=== PATIENT | female | born 1995 ===

== ENCOUNTER 2017-07-13 19:44 | Emergency (ER) | payer SELFPAY ==
[2017-07-13 20:15] VITALS: BP 104/53; PULSE 67; RESP 17; TEMP 99.7; O2SAT 99
--- NOTE | 2017-07-13 20:47 | ED PDOC ---
HPI: Abdomen Time Seen by Provider: 07/13/17 20:20 Chief Complaint (Nursing): Abdominal Pain Chief Complaint (Provider): abdominal pain History Per: Patient History/Exam Limitations: no limitations Onset/Duration Of Symptoms: Days (2) Current Symptoms Are (Timing): Still Present Location Of Pain/Discomfort: RLQ, LLQ, Suprapubic Quality Of Discomfort: "Pain" Additional History Per: Patient Additional Complaint(s): 21 y/o female, approx 6 weeks gestation, presents with lower pelvic pain x 2 days. Associated low back pain, and one vomiting episode today. Denies fever, cough, congestion, chest pain, shortness of breath, changes in bowel movements, dysuria, hematuria, vaginal bleeding/discharge. Abnormal Vaginal Bleeding: No Last Menstral Period: 05/31/17 : 2 Para: 1 Miscarriage: 0 Past Medical History Reviewed: Historical Data, Nursing Documentation, Vital Signs Vital Signs: Last Vital Signs Temp 99.7 F H 07/13/17 20:10 Pulse 67 07/13/17 20:10 Resp 17 07/13/17 20:10 BP 104/53 L 07/13/17 20:10 Pulse Ox 99 07/13/17 22:34 - Medical History PMH: No Chronic Diseases - Surgical History Surgical History: No Surg Hx - Family History Family History: States: No Known Family Hx - Allergies Allergies/Adverse Reactions: Allergies Allergy/AdvReac Type Severity Reaction Status Date / Time No Known Allergies Allergy Verified 07/13/17 20:15 Review of Systems ROS Statement: Except As Marked, All Systems Reviewed And Found Negative Gastrointestinal: Positive for: Abdominal Pain Physical Exam - Reviewed Nursing Documentation Reviewed: Yes Vital Signs Reviewed: Yes - Physical Exam Appears: Positive for: Well, Non-toxic, No Acute Distress Head Exam: Positive for: ATRAUMATIC, NORMAL INSPECTION, NORMOCEPHALIC Skin: Positive for: Normal Color Eye Exam: Positive for: Normal appearance ENT: Positive for: Normal ENT Inspection Cardiovascular/Chest: Positive for: Regular Rate, Rhythm Respiratory: Positive for: Normal Breath Sounds Gastrointestinal/Abdominal: Positive for: Tenderness (suprapubic, rlq, llq) Back: Positive for: Normal Inspection. Negative for: L CVA Tenderness, R CVA Tenderness Extremity: Positive for: Normal ROM Neurologic/Psych: Positive for: Alert, Oriented - Laboratory Results Result Diagrams: 07/13/17 22:54 12/18/17 22:54 - ECG O2 Sat by Pulse Oximetry: 99 - Progress ED Course And Treament: labs, urine, ob tv u/s EXAM: US , Transvaginal CLINICAL HISTORY: 21 years old, female; Pain; Other: Pelvic pain; Gestational age or lmp: 06/01/17 ; ; Additional info: 6wks ; Pelvic/back pain TECHNIQUE: Real-time transvaginal obstetrical ultrasound of the maternal pelvis and a first trimester with image documentation. Transvaginal imaging was used for better evaluation of the fetus and adnexa. COMPARISON: No relevant prior studies available. FINDINGS: Gestation: Single live intrauterine gestation. heart rate of 113 beats per minute. Nadine-rump length of 0.5 cm, correlating with gestational age of 6 weeks 2 days. Uterus/cervix: Retroverted uterus. No subchorionic hemorrhage. No cervical dilatation or effacement. Ovaries: RIGHT ovary: Normal. LEFT ovary: 3.3 x 3.2 x 3.5 cm anechoic lesion. No adnexal masses. Free fluid: No significant free fluid. IMPRESSION: 1. Single live intrauterine gestation. 2. LEFT ovarian cyst. 3. Incidental/non-acute findings are described above. Patient educated on findings, discharged with instructions to follow up Billing And Quality Technician in 2-3 days. Return to ED for worsening/concerning symptoms. Disposition - Clinical Impression Clinical Impression: Abdominal pain during , Ovarian cyst - Patient ED Disposition Is Patient to be Admitted: No Counseled Patient/Family Regarding: Diagnosis, Need For Followup - Disposition Disposition: Routine/Home Disposition Time: 00:39 Condition: STABLE Instructions: Ovarian Cyst (ED), Abdominal Pain in (ED) Forms: Celery (Upper Sorbian) Print Language: HAITIAN
[2017-07-13 21:40] LABS: URINE BACTERIA MOD (<OCC); URINE BILIRUBIN NEGATIVE (NEGATIVE); URINE BLOOD MODERATE (NEGATIVE); URINE COLOR AMBER (YELLOW); URINE GLUCOSE (UA) NEG (Normal); URINE KETONE NEGATIVE (NEGATIVE); URINE LEUKOCYTE ESTERASE NEG Leu/uL (Negative); URINE PROTEIN 30 mg/dL (NEGATIVE); WBC URINE 6 /hpf (0-5)
[2017-07-13 21:45] LABS: RBC URINE 12 /hpf (0-3)
[2017-07-13 22:58] LABS: BASO % 0.5 % (0.0-2.0); EOS # 0.1 K/uL (0.0-0.7); HEMATOCRIT 34.4 % (34.0-47.0); MEAN CELL VOLUME 74.1 fl (81.0-99.0); MEAN CORPUSCULAR HEMOGLOBIN 23.7 pg (27.0-31.0); MEAN CORPUSCULAR HGB CONC 31.9 g/dL (33.0-37.0); MEAN PLATELET VOLUME 8.4 fl (7.2-11.7); MONO # 0.8 K/uL (0.0-0.8); MONO % 7.8 % (0.0-10.0); NEUT # 6.7 K/uL (1.8-7.0); NEUT % 62.7 % (50.0-75.0); RED CELL DISTRIBUTION WIDTH 14.5 % (11.5-14.5); WHITE BLOOD COUNT 10.7 K/uL (4.8-10.8)
[2017-07-13 23:06] LABS: ALB/GLOB RATIO 1.2 (1.0-2.1); ALKALINE PHOSPHATASE 67 U/L (38-126); ALT/SGPT 47 U/L (9-52); AST/SGOT 20 U/L (14-36); BILIRUBIN,TOTAL 0.3 mg/dl (0.2-1.3); BLOOD UREA NITROGEN 9 mg/dl (7-17); CALCIUM 9.3 mg/dL (8.4-10.2); CARBON DIOXIDE 21 mmol/L (22-30); CHLORIDE 104 mmol/L (98-107); GFR AFRICAN-AMERICAN > 60; GLUCOSE,RANDOM 84 mg/dL (65-105); POTASSIUM 3.7 MMOL/L (3.6-5.0); SODIUM 131 mmol/l (132-148); TOTAL PROTEIN 6.7 G/DL (6.3-8.2)
--- NOTE | 2017-07-14 11:19 | US ---
PROCEDURE: OB Pelvic Ultrasound HISTORY: 6 wks ; pelvic/back pain COMPARISON: None available. FINDINGS: UTERUS: Single Live intrauterine gestation. Yolk sac and pole are visualized. CRL measures 0.5 cm equivalent to 6 weeks and 2 days gestatioin Gestational sac diameter measures 2.2 cm equivalent to 6 weeks and 5 days gestation age (Ultrasound estimated): 6 weeks and 0 day. Date of delivery (Ultrasound estimated) : 03/04/2018 Heart rate: 115 bpm. Alyson-gestational hemorrhage: None. Uterus measures 7.6 x 4.4 x 4.9 cm. No mass CERVIX: Long and closed. No cervical abnormality seen. RIGHT OVARY: Measures 1.5 x 1.0 x 1.6 cm. No mass. Normal flow. LEFT OVARY: Measures 4.4 x 3.9 x 4.1 cm. No mass. Normal flow. There is a 3.3 x 3.2 x 3.5 cm simple cyst. FREE FLUID: None. OTHER FINDINGS: None. IMPRESSION: 1. Single live intrauterine gestation with mean gestational age of 6 weeks and 0 day. Estimated date of delivery by ultrasound is 03/04/2018. The ultrasound dates correspond with the clinical dates. 2. 3.5 cm simple cyst in the left ovary. A preliminary report was provided by [employer] [facility].
== END 2017-07-14 00:46 | disposition home or self-care (01) ==
LOC: H.ER 19:44
DX: O26.891 Other specified pregnancy related conditions, first trimester (principal); R10.2 Pelvic and perineal pain; N83.202 Unspecified ovarian cyst, left side; Z3A.01 Less than 8 weeks gestation of pregnancy

== ENCOUNTER 2017-07-30 20:06 | Emergency (ER) | payer SELFPAY ==
[2017-07-30 20:16] VITALS: BMI 31.8
[2017-07-30 20:18] VITALS: RESP 18; TEMP 98.8
--- NOTE | 2017-07-30 20:59 | ED PDOC ---
HPI: Female Pain Time Seen by Provider: 07/30/17 20:36 Chief Complaint (Nursing): Female Genitourinary Chief Complaint (Provider): : vaginal bleeding History Per: Patient History/Exam Limitations: no limitations Onset/Duration Of Symptoms: Hrs Current Symptoms Are (Timing): Still Present Quality Of Discomfort: Cramping, "Pain" Additional History Per: Patient Additional Complaint(s): 21 y/o female, approximately 8 weeks gestation, presents with vaginal spotting with clots x 6 hours. Associated pelvic cramping. Denies fever, nausea/ vomiting, changes in bowel movements, urinary symptoms. Patient has not yet received care. Last Menstral Period: 05/2017 : 2 Para: 1 Miscarriage: 0 Past Medical History Reviewed: Historical Data, Nursing Documentation, Vital Signs Vital Signs: Last Vital Signs Temp 98.8 F 07/30/17 20:17 Pulse 78 07/30/17 20:17 Resp 18 07/30/17 20:17 BP 112/65 07/30/17 20:17 Pulse Ox 98 07/30/17 20:17 - Medical History PMH: No Chronic Diseases - Surgical History Surgical History: - Family History Family History: States: No Known Family Hx - Living Arrangements Living Arrangements: With Family - Allergies Allergies/Adverse Reactions: Allergies Allergy/AdvReac Type Severity Reaction Status Date / Time No Known Allergies Allergy Verified 07/30/17 20:16 Review of Systems ROS Statement: Except As Marked, All Systems Reviewed And Found Negative Genitourinary Female: Positive for: Vaginal Bleeding, Pelvic Pain Physical Exam - Reviewed Nursing Documentation Reviewed: Yes Vital Signs Reviewed: Yes - Physical Exam Appears: Positive for: Well, Non-toxic, No Acute Distress Head Exam: Positive for: ATRAUMATIC, NORMAL INSPECTION, NORMOCEPHALIC Skin: Positive for: Normal Color Eye Exam: Positive for: Normal appearance ENT: Positive for: Normal ENT Inspection Cardiovascular/Chest: Positive for: Regular Rate, Rhythm Respiratory: Positive for: Normal Breath Sounds Gastrointestinal/Abdominal: Positive for: Bowel Sounds, Soft, Tenderness ( suprapubic, LLQ) Pelvic Exam: Positive for: External Exam Normal, No Cerv. Motion Tender, Other ( cervix closed. exam conveyor loader Susan Walsh RN). Negative for: Active Bleeding Back: Positive for: Normal Inspection Extremity: Positive for: Normal ROM Neurologic/Psych: Positive for: Alert, Oriented - Laboratory Results Result Diagrams: 07/30/17 21:13 07/30/17 21:13 Urine POC: Positive Urine dip results: Positive for: Blood. Negative for: Leukocyte Esterase, Nitrate - ECG O2 Sat by Pulse Oximetry: 98 - Progress ED Course And Treament: labs, u/s, urine EXAM: US Uterus, Limited EXAM DATE/TIME: Exam ordered 07/30/2017 8:55 PM CLINICAL HISTORY: 21 years old, female; Signs and symptoms; Lmp or gestational age (in weeks): 01/10; Antepartum complications; Other: Spotting; ; Additional info: Approx 8 wks gestation, bleeding TECHNIQUE: Real-time ultrasound of the maternal uterus (limited) with image documentation. COMPARISON: US - OB TRANSVAGINAL 2017-07-13 21:09 FINDINGS: Fetus: There is an intrauterine identified with a approximate gestational age of 9 weeks and 4 days. A heart rate of 171 beats per minute is documented. Perdido-rump length is 2.2 cm. Cervix: Cervix is closed and measures 3.8 cm. Adnexa: Probable corpus luteal cyst in the left ovary. IMPRESSION: There is an intrauterine identified with a approximate gestational age of 9 weeks and 4 days. A heart rate of 171 beats per minute is documented. Perdido-rump length is 2.2 cm. Patient educated on findings, discharged with instructions to follow up Storm Sash Maker in 2-3 days. Return precautions given. Disposition - Clinical Impression Clinical Impression: Vaginal bleeding in - Patient ED Disposition Is Patient to be Admitted: No Counseled Patient/Family Regarding: Studies Performed, Diagnosis, Need For Followup - Disposition [facility]errals: [facility]Outside] Disposition: Routine/Home Disposition Time: 22:25 Condition: STABLE Instructions: Threatened Miscarriage (ED) Print Language: SETSWANA
[2017-07-30 21:20] LABS: BASO % 0.3 % (0.0-2.0); EOS # 0.1 K/uL (0.0-0.7); EOS % 0.6 % (0.0-4.0); HEMOGLOBIN 11.3 g/dL (12.0-16.0); LYMPH # 2.4 K/uL (1.0-4.3); LYMPH % 26.8 % (20.0-40.0); MEAN CELL VOLUME 73.6 fl (81.0-99.0); MEAN CORPUSCULAR HEMOGLOBIN 24.1 pg (27.0-31.0); MEAN CORPUSCULAR HGB CONC 32.8 g/dL (33.0-37.0); MEAN PLATELET VOLUME 8.3 fl (7.2-11.7); MONO # 0.6 K/uL (0.0-0.8); MONO % 7.1 % (0.0-10.0); NEUT # 5.9 K/uL (1.8-7.0); NEUT % 65.2 % (50.0-75.0); NRBC % 0.3 % (0.0-0.0); RBC 4.71 Mil/uL (3.80-5.20); RED CELL DISTRIBUTION WIDTH 14.9 % (11.5-14.5)
[2017-07-30 21:53] LABS: ALB/GLOB RATIO 1.1 (1.0-2.1); ALBUMIN 3.5 g/dL (3.5-5.0); ALT/SGPT 40 U/L (9-52); AST/SGOT 18 U/L (14-36); BLOOD UREA NITROGEN 6 mg/dl (7-17); CALCIUM 8.9 mg/dL (8.4-10.2); GFR AFRICAN-AMERICAN > 60; GFR NON-AFRICAN AMERICAN > 60
[2017-07-30 23:17] VITALS: BP 118/71; PULSE 74; O2SAT 100
--- NOTE | 2017-07-31 09:09 | US ---
Indication: Approximately 8 weeks gestation, bleeding Comparison: Ob transvaginal ultrasound performed 07/13/17 Technique: Transabdominal pelvic ultrasound Findings: The uterus measures approximately 10.6 x 5.6 x 7.2 cm. Retroverted. Cervix length measures approximately 3.8 cm. There is a single intrauterine fetus present. The gestational sac measures 3.7 cm and is compatible with a gestational age of 8 weeks 6 days. The crown-rump length measures 2.2 cm and is compatible with a gestational age of 9 weeks 0 days. There is heart motion which measured 171 BPM. The right ovary measures 2.2 x 1.0 x 2.6 cm. The left ovary measures 3.7 x 2.8 x 4.4 cm and contains 3.0 x 2.2 x 3.3 cm left ovarian cyst. Blood flow was demonstrated to both ovaries. Impression: Live single intrauterine with estimated gestational age 8 weeks 6 days by gestational sac calculation and 9 weeks 0 days by crown-rump length calculation. heart rate 171 bpm. Advise an anomaly screen at 16-18 weeks gestational age 3.3 cm left ovarian cyst. Preliminary impression was provided by [facility].
== END 2017-07-30 23:19 | disposition home or self-care (01) ==
LOC: H.ER 20:06
DX: O20.0 Threatened abortion (principal); N83.202 Unspecified ovarian cyst, left side; O34.82 Maternal care for other abnormalities of pelvic organs, second trimester; Z3A.18 18 weeks gestation of pregnancy

== ENCOUNTER 2018-01-26 20:40 | Emergency (ER) | payer MEDICAID ==
[2018-01-26 21:31] VITALS: BMI 30.6
[2018-01-26 22:45] LABS: SQUAMOUS EPITHIAL < 1 /hpf (0-5); URINE BACTERIA RARE (<OCC); URINE BILIRUBIN NEGATIVE (NEGATIVE); URINE BLOOD SMALL (NEGATIVE); URINE CLARITY SLIGHTY-CLOUDY (Clear); URINE COLOR YELLOW (YELLOW); URINE GLUCOSE (UA) NEG (Normal); URINE LEUKOCYTE ESTERASE NEG Leu/uL (Negative); URINE PROTEIN NEGATIVE (NEGATIVE); URINE UROBILINOGEN 0.2-1.0 mg/dL (0.2-1.0)
[2018-01-27 04:01] VITALS: BP 81/45; PULSE 63; RESP 18; TEMP 97.9
--- NOTE | 2018-01-27 07:46 | OBHP ---
Datetime: 01/26/2018 21:55 IP Adm Impression: , intrauterine ; No Active Labor; Intact Membranes IP Admit Plan: Observation/Evaluation Admit Comment, IP Provider: PNP: Dr. Gaxiola [facility] LMP: 05/2017 first u/s: could not recall 22 y/o F at 34.5 wks gestation is presenting with c/o B/L non-radiating, cramping lower back pain x 3 days. She describes the pain as 9/10. She states she saw her PNP yesterday and was given a s cript for antibiotics which she has not taken yet. Patient reports being hospitalized for similar sym ptoms for 4 days while with her first child. Patient denied any vaginal bleeding, fluid loss , fever, chills, headache, blurred vision, c/p, sob. Patient reports recent movement. She is no t currently sexually active. OBGYNhx: , 2014, M, 7 lb 14 oz, Breech PMHx: none FHx: Mother -Diabetes Dad- None Social hx: No tobacco, EtOH or elicit drugs Surghx: Allergies: NKA Meds: none ROS: No fever, chills, dizziness, headache, blurred vision, c/p, sob A/P:22 y/o F at 34.5 wks gestation is presenting with c/o B/L non-radiating, cramping lower b ack pain. 1. Ordered UA, which came back negative for leukocyte esterase, and nitrites. 2. Tylenol 650mg PO, one time for pain. (Patient reports she feel better after receiving tylenol). 2. Continue to monitor patient's vitals. Case discussed with Dr. Harriet Bryant PGY-1 OB Hospitalist on-call: Pt seen and examiend. She was given scripts for UA/C_S...told not to take Abx until result came back. She also had lost script form a previous visit for UA to be done UA neg for UTI - po fluids and tylenol prn .... follwo up as scheduled. MAHNDO Abdomen - PN: Normal (Annotations: Data stored by CPN on behalf of user) Back - PN: Abnormal Lungs - PN: Normal Heart - PN: Normal General - PN: Normal Comments, ACOG Physical Exam: Back paraspinal tenderness; not CVA tenderness IP Hx Assessment: The History has been Reviewed and is Current EGA AdmitDate IP: 34.5 Vital Signs Provider: Reviewed IP Chief Complaint: Maternal discomfort FHR Category Provider Fetus A: Category I
--- NOTE | 2018-01-27 07:49 | OBDCSUM ---
Datetime: 01/26/2018 23:27 Discharged to, Provider: Home Follow up at, Provider: [facility] Disch Instr Activity: Normal activity Disch Instr Diet: Regular Discharge Diet restrict Prov: DRINK PLENTY OF WATER (5-6 BOTTLES) Discharge Time: 01/26/2018 23:31 Follow up in weeks, Provider: 02/09/18 Disch Referrals: None Disch Activity Restrictions: No lifting Discharge Comment, Provider: ALEX asif Discharge Diagnosis Prov Other: back pain; musculoskletal pain
== END 2018-01-26 23:40 | disposition home or self-care (01) ==
LOC: H.EROB2 20:40
DX: O26.93 Pregnancy related conditions, unspecified, third trimester (principal); M54.5 Low back pain; Z3A.34 34 weeks gestation of pregnancy

== ENCOUNTER 2018-02-19 05:14 | Emergency (ER) | payer MEDICAID ==
--- NOTE | 2018-02-19 08:18 | OBHP ---
Datetime: 02/19/2018 06:51 IP Adm Impression: Term, intrauterine Admit Comment, IP Provider: Pt is a 38.1wk ANGIE 03/04/18 based on LMP 06/13 and U/S, patient is a [facility] clinic patient. States she is having belly pain on the right and left sides, brown vaginal dis charge and headaches. Patient also feels contractions, denies loss of fluid. Reports good movem ent. Does complain of some diarrhea, denies dizziness, headachse, blurry vision, CP/SOB, NV, constipa tion, or burning with urination. 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 Leong Addendum: I saw and examined patient. Patient observed at OB ED. Cervix long, closed, posterior. No blood, f luid, discharge. No evidence of labor at this time. Patient scheduled for follow-up in clinic in 3 da ys. Patient discharged home with labor precautions. Salo Extremities - PN: Normal Abdomen - PN: Normal Lungs - PN: Normal Heart - PN: Normal HEENT - PN: Normal General - PN: Normal EGA AdmitDate IP: 38.1 Vital Signs Provider: Reviewed; Within Normal Limits IP Chief Complaint: Maternal discomfort
[2018-02-19 12:46] VITALS: BP 100/60; PULSE 65; RESP 18; TEMP 97.5; O2SAT 98
== END 2018-02-19 08:30 | disposition home or self-care (01) ==
LOC: H.EROB2 05:14
DX: O26.93 Pregnancy related conditions, unspecified, third trimester (principal); R10.2 Pelvic and perineal pain; M54.9 Dorsalgia, unspecified; R51 Headache; Z3A.38 38 weeks gestation of pregnancy

== ENCOUNTER 2018-03-01 09:35 | Inpatient (IN) | payer MEDICAID ==
[2018-03-01 10:57] VITALS: BMI 31.6
[2018-03-01] MEDS: Lactated Ringer's 1,000 ML IV ONE ×2 (11:00→17:45)
[2018-03-01] MEDS ORDERED: Lactated Ringer's 2,000 ML IV SCH (11:00)
[2018-03-01] MEDS ORDERED: ceFAZolin IV 2 gm in Dextrose 2 GM/50 ML BAG IVPB ONE (11:34)
[2018-03-01] MEDS ORDERED: OXYTOCIN/0.9 % NS 20 UNIT/1,000 ML BAG IV SCH (12:30)
[2018-03-01 12:54] LABS: BASO % 0.3 % (0.0-2.0); EOS # 0.1 K/uL (0.0-0.7); EOS % 0.6 % (0.0-4.0); HEMOGLOBIN 10.6 g/dL (12.0-16.0); LYMPH # 3.2 K/uL (1.0-4.3); LYMPH % 31.2 % (20.0-40.0); MEAN CELL VOLUME 67.5 fl (81.0-99.0); MEAN CORPUSCULAR HGB CONC 32.6 g/dL (33.0-37.0); MEAN PLATELET VOLUME 8.4 fl (7.2-11.7); MONO # 0.7 K/uL (0.0-0.8); MONO % 7.4 % (0.0-10.0); NEUT # 6.2 K/uL (1.8-7.0); NEUT % 60.5 % (50.0-75.0); NRBC % 0.1 % (0.0-0.0); RBC 4.84 Mil/uL (3.80-5.20); WHITE BLOOD COUNT 10.2 K/uL (4.8-10.8)
--- NOTE | 2018-03-01 13:09 | OBADHP ---
Datetime: 03/01/2018 12:42 Admit Comment, IP Provider: Pt is a 22 y/o female, , with IUP 39.4 wks gestation (ANGIE 03/04 base d on LMP c/w 17 wk US) here for a scheduled repeat c section. Pt denies ctx, vb, lof. +FM PNCHx: Alpha thal trait +, sickle cell trait +. 3rd trimester labs reviewed- wnl. 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 Mauricio. P: CBC, Type and Screen, 2 gm Anceph, 1L bolus, Anesthisiology consulted. 1 L bolus. Discussed case with Dr. Mauricio Agree with above H+P [facility] Vital Signs Provider: Reviewed; Within Normal Limits Datetime: 02/19/2018 06:51 Extremities - PN: Normal Abdomen - PN: Normal Lungs - PN: Normal Heart - PN: Normal HEENT - PN: Normal General - PN: Normal IP Chief Complaint: Maternal discomfort EGA AdmitDate IP: 38.1 IP Adm Impression: Term, intrauterine Datetime: 01/26/2018 21:55 Back - PN: Abnormal Comments, ACOG Physical Exam: Back paraspinal tenderness; not CVA tenderness IP Hx Assessment: The History has been Reviewed and is Current FHR Category Provider Fetus A: Category I IP Admit Plan: Observation/Evaluation
[2018-03-01] MEDS ORDERED: Morphine 1 mg/ml preservative-free Inj(Duramorph) ONE (13:10)
[2018-03-01] MEDS ORDERED: Oxycodone/Acetaminophen 5/325 mg Tab PO PRN ×2 (15:44)
[2018-03-01] MEDS ORDERED: Simethicone 80 mg Chewtab PO SCH (16:00)
--- NOTE | 2018-03-01 16:11 | OBDS ---
DELIVERY PERSONNEL Delivery Doctor: poter mcpatrice Anesthesiologist: carbohello MATERNAL INFORMATION Delivery Anesthesia: Spinal Maternal Complications: Other Other Maternal Complications: rc/s Provider Comments: See Operative report LABOR SUMMARY EDC: 03/04/2018 00:00 No. Babies in Womb: 1 Attempted: No LABOR INFORMATION Group B Beta Strep: Negative Antibiotics Time of Last Dose: ancef 2 grams x1 13:13 STAGES OF LABOR Stage 3 hrs: 0 Stage 3 min: 1 CSECTION DELIVERY Primary Indication: Repeat Elective CSection Incision: Lower Uterine Transverse BABY A INFORMATION Delivery Date/Time: 03/01/2018 15:20 Method of Delivery: Born in Route : Yes : N/A Forceps: N/A Vacuum Extraction: N/A Shoulder Dystocia : No SHOULDER DYSTOCIA BABY A Infant Delivery Date/Time: 03/01/2018 15:20 PRESENTATION/POSITION BABY A Presentation: Cephalic Cephalic Presentation: Vertex Breech Presentation: N/A PLACENTA INFORMATION BABY A Placenta Delivery Time : 03/01/2018 15:21 Placenta Method of Delivery: Manual Removal Placenta Status: Delivered SCORES BABY A Heart Rate 1 min: >100 bpm Resp Effort 1 min: Good Cry Reflex Irritability 1 min: Cough or Sneeze or Pulls Away Muscle Tone 1 min: Active Motion Color 1 min: Body [place], Extremities Blue Resuscitation Effort 1 min: Tactile Stimulation SCORE 1 MIN: 9 Heart Rate 5 min: >100 bpm Resp Effort 5 min: Good Cry Reflex Irritability 5 min: Cough or Sneeze or Pulls Away Muscle Tone 5 min: Active Motion Color 5 min: Body [place], Extremities Blue SCORE 5 MIN: 9 Heart Rate 10 min: >100 bpm Resp Effort 10 min: Good Cry Reflex Irritability 10 min: Cough or Sneeze or Pulls Away Muscle Tone 10 min: Active Motion Color 10 min: Completely [place] SCORE 10 MIN: 10 INFORMATION BABY A Gestational Age at Delivery: 39+4 Infant Outcome : Liveborn Condition : Stable Sex: Female IDENTIFICATION/MEDS BABY A ID Band Number: [id number] ID Band Location: Left Leg; Left Arm WEIGHT/LENGTH BABY A Birthweight (gms): 3010 Infant Weight (lb): 6 Weight (oz): 10 Length Inches: 20.25 Length cms: 51.4 CORD INFORMATION BABY A No. Cord Vessels: 3 Nuchal Cord : N/A Nuchal Cord Other: none True Knot: none Infant Cord pH Baby Arterial: no Infant Cord pH Baby Venous: no Cord Blood Taken: Yes Suction: Mouth; Nose ASSESSMENT BABY A Complications: None Physical Findings at Delivery: Within Normal Limits Infant Respirations: Appears Normal Roof Bolter Operator/ALS Called : Yes Infant Care By: dr leavitt/ aron gaston rn Transferred To: Remains with Mother
[2018-03-01] MEDS ORDERED: Morphine 5 MG/ML SYRINGE IV PRN (18:55)
[2018-03-01] MEDS ORDERED: DiphenhydrAMINE 50 mg/ml Inj IVP PRN (18:55)
[2018-03-01 19:14] LABS: HEMOGLOBIN 9.9 g/dL (12.0-16.0); MEAN CELL VOLUME 68.3 fl (81.0-99.0); MEAN CORPUSCULAR HEMOGLOBIN 21.4 pg (27.0-31.0); MEAN CORPUSCULAR HGB CONC 31.3 g/dL (33.0-37.0); RBC 4.65 Mil/uL (3.80-5.20); RED CELL DISTRIBUTION WIDTH 17.7 % (11.5-14.5); WHITE BLOOD COUNT 14.8 K/uL (4.8-10.8)
[2018-03-01] MEDS: Lactated Ringer's 1,000 ML IV SCH (20:00)
[2018-03-02] MEDS: Lactated Ringer's 1,000 ML IV SCH (03:30)
[2018-03-02 06:19] LABS: HEMOGLOBIN 10.2 g/dL (12.0-16.0); MEAN CORPUSCULAR HEMOGLOBIN 22.2 pg (27.0-31.0); MEAN CORPUSCULAR HGB CONC 32.7 g/dL (33.0-37.0); RBC 4.57 Mil/uL (3.80-5.20); RED CELL DISTRIBUTION WIDTH 17.6 % (11.5-14.5); WHITE BLOOD COUNT 10.8 K/uL (4.8-10.8)
--- NOTE | 2018-03-02 07:08 | OP ---
Copied To: Anthony Alexis MD Attending MD: Anthony Alexis MD PROCEDURE DATE: 03/01/2018 PREOPERATIVE DIAGNOSIS: Term with prior section, desires repeat. POSTOPERATIVE DIAGNOSIS: Term with prior section, desires repeat, delivered. PROCEDURE: Repeat low transverse section. SURGEON: Anthony Alexis MD FOURDRINIER TENDER: Dr. Matt Gaxiola, PGY2. TYPE OF ANESTHESIA: Spinal. ANESTHESIA ADMINISTERED BY: Dr. Cruz IV FLUID INTAKE: 2000 mL lactated Ringer's. ESTIMATED BLOOD LOSS: 800 mL. URINE OUTPUT: 600 mL, clear at the end of procedure. PATHOLOGY: None. CLOSURE: [place]. COMPLICATIONS: Patient with SVT, after spinal anesthesia given, resolved. FINDINGS: A live female with Apgars of 9 and 9, weight 6 pounds 10 ounces, delivered in vertex presentation, amniotic fluid clear, and grossly normal uterus, tubes, and ovaries. DESCRIPTION OF PROCEDURE: The patient was taken to the operating room and given spinal anesthesia. After spinal anesthesia was given, the patient developed supraventricular tachycardia, which resolved within minutes. Following this, as the patient's all vitals were stable, we proceeded with the section. The patient was in the dorsal supine position with a leftward tilt. A Pfannenstiel skin incision was made with the scalpel to the previous scar and carried to the underlying fascia with the Bovie. The incision was then incised in midline and this incision was extended laterally using the Mendoza scissors. The inferior aspect of the fascia incision was then grasped with Moses clamps, elevated, and the underlying rectus muscles were dissected off sharply with the Bovie and then bluntly. Attention was then turned to the superior aspect of the fascial incision which in a similar fashion was dissected off with the Bovie and then bluntly. The rectus muscles were meticulously in the midline. The peritoneum was identified and entered with Metzenbaum scissors. This incision was then extended laterally, superiorly, and inferiorly paying close attention to the bladder. The bladder blade was inserted. The vesicouterine peritoneum was identified, tented up, and entered with Metzenbaum scissors. This incision was extended laterally and a bladder flap was created digitally. The bladder blade was reinserted. The lower uterine segment was then incised in a transverse fashion with the scalpel, and the incision was extended cephalocaudally bluntly. The membranes were ruptured and found to be clear and the infant was delivered in vertex presentation atraumatically. The nose and mouth were suctioned on the abdomen and the cord was doubly clamped and cut, and the infant was handed to the awaiting water filter cleaner. Cord blood was then taken. The placenta was extracted manually and intact. The uterus was exteriorized and cleared of all clots and debris. The incision was then closed with 1 Vicryl in a running locked fashion and three further [id number] sutures were then placed and good hemostasis was noted. Copious irrigation was performed. Inspection of the bilateral tubes and ovaries revealed normal findings. The uterus was then returned to the abdomen. The gutters were cleared of all clots and inspection of the uterine incision again revealed good hemostasis. The peritoneum muscle layer was reapproximated with 2-0 Vicryl in a running fashion. Good hemostasis was noted. The fascia was reapproximated with 0 Vicryl in a running fashion bilaterally to the midline. The skin was reapproximated with 4 interrupted stitches using a 3-0 plain suture and the incision was closed with katerin and covered with a sterile dressing. The patient tolerated the procedure well. Sponge, lap, and needle counts were correct x4. Ancef 2 g was given preoperatively, and the patient was taken to the recovery room in stable condition. There was no injury to the bladder, bowel, ureter, or baby. Anthony Alexis MD ELIO
--- NOTE | 2018-03-02 08:33 | OBPPN ---
Datetime: 03/02/2018 07:27 PP Pain Prov: Within normal limits PP Nausea Prov: Denies PP Flatus Prov: No PP BM Prov: No PP Breasts Prov: Not Done PP Heart Prov: Normal PP Lungs Prov: Normal PP Abdomen/Uterus Prov: Normal PP Lochia Prov: Normal PP Vulva/Perineum Prov: Not Done PP CVA Tenderness Prov: Not Done PP Extremities Prov: Normal PP C/S Incision Prov: Normal PP Impression Prov: Normal progression PP Plan Prov: Continue present management PP Progress Note Prov: POD 1 Pt is 22 y/o female s/p repeat scheduled C section on 03/01. Postoperatiely, pt had asymptoma tic hypotension. She was given IV fluid x2 L and monitored closely. BP stabilized overnight. Today pt denies any abdominal pain. Denies lightheadedness, dizziness, or palpitations. Tolerated juice and j ello overnight. No BM yet. Dena removed this am. Vitals: BPimproved overnight _ 100 systolic, 50's diastolic. Remainder of vitals stable General: NAD Cardiopulmonary exam wnl Abdomen: Soft, appropriate tenderness, dressing clean/dry/in tact Ext: no edema H/H post : 10.1/31.1 A/P: s/p c section, doing well on pod 1. Vitals stable- hypotension improved. Pain controlled . Tolerating liquid diet; will advance to regular. Continue with present management. Dressing to be removed this afternoon at 4pm. Anticipated discharge on 03/04. -Encourage -Pain Scale- Ibuprofen for mild, Percocet for mod-severe -Sofy Qureshi PGY2 Patient seen and examined by me this am. Agree with above note. Continue to monitor BP. Patient as ymptomatic. --Dr. Alexis Vital Signs Provider PP: Reviewed; Within Normal Limits Datetime: 03/01/2018 20:03 Vital Signs Provider Details PP: Hypotensive
[2018-03-02] MEDS ORDERED: Multivitamin With Minerals Tab PO SCH (09:00)
[2018-03-02] MEDS ORDERED: Lactated Ringer's 1,000 ML IV SCH (10:12)
[2018-03-02] MEDS ORDERED: DiphenhydrAMINE 50 mg/ml Inj IVP PRN (10:12)
[2018-03-02] MEDS ORDERED: Oxycodone/Acetaminophen 5/325 mg Tab PO PRN ×2 (10:12)
[2018-03-02] MEDS: Simethicone 80 mg Chewtab PO SCH ×2 (15:43→22:05)
[2018-03-03] MEDS: Simethicone 80 mg Chewtab PO SCH ×4 (03:35→21:53)
[2018-03-03] MEDS: Multivitamin With Minerals Tab PO SCH (09:57)
--- NOTE | 2018-03-03 11:03 | OBPPN ---
Datetime: 03/03/2018 07:12 PP Pain Prov: Within normal limits PP Heart Prov: Normal PP Lungs Prov: Normal PP Extremities Prov: Normal PP Comments Phys Exam Prov: General: NAD HEENT: NOrmopcephalic, EOMI CV: RRR,No murmurs Abdomen: Soft, uterus at umbilicus level LE: no edema, Homans neg PP Impression Prov: Normal progression PP Plan Prov: Continue present management PP Progress Note Prov: 22 y/o s/p repeat scheduled C section on 03/01/18 at 15:20 with 39.4 weeks , patient is seen and examined at bedside this AM. Patient had uneventful overnight. Patient reports mild pelvic pain controlled w/ pain meds. Patient is getting OOB and Ambulating w/o dizziness now. Pa tient Breast/bottle feeding baby. Tolerating PO liquids well. Lochia is like menses in volume, voidin g w/ no blood noted. Reports passing gas per rectum, no bowel movement yet. Denies fevers, chills, n/ v/d, CP/SOB, lightheadedness and calf pain, palpitations, chest pain. Assessment: 22 y/o s/p repeat scheduled C section on 03/01/2018 @ 15:20, tolerating pain w/ med ication, tolerating oral intake, adequate urine output, doing well on POD2. Plan: -Ibuprofen 600 mg 1 tab Q6h PO prn for mild pain. -Percocet 5/325 mg 1-2 tabs PO Q6h prn for mod/severe pain. -Encourage breast feeding and ambulation Deborah Reaves MD PGY1 Agree with above resident note. Patient seen and examined by me this am. Dr. Alexis
[2018-03-03] MEDS ORDERED: Tdap Vaccine 0.5 ml Vial (10-64 yrs) IM ONE (16:41)
[2018-03-04] MEDS: Simethicone 80 mg Chewtab PO SCH ×2 (03:40→09:08)
[2018-03-04] MEDS ORDERED: Measles, Mumps, and Rubella 0.5 ML VIAL SC ONE (07:39)
[2018-03-04] MEDS: Multivitamin With Minerals Tab PO SCH (08:29)
--- NOTE | 2018-03-04 13:10 | OBPPN ---
Datetime: 03/04/2018 07:15 PP Pain Prov: Within normal limits PP Progress Prov: Normal PP Impression Prov: Normal progression PP Plan Prov: Continue present management; Discharge PP Progress Note Prov: 22 y/o s/p repeat scheduled C section on 03/01/18 at 15:20 with 39.4 weeks , patient is seen and examined at bedside this morning. Patient had uneventful overnight. Patient rep orts mild pelvic pain controlled w/ pain meds and compared to previous day pain is decreasing. Patien t is getting OOB and Ambulating w/o dizziness. Patient Breast/bottle feeding baby. Patient is eating solid food and tolerating it. Lochia is less than menses in volume, voiding w/ no difficulties. Repor ts passing gas per rectum, no bowel movement yet. Denies fevers, chills, n/v/d, CP, SOB, lightheadedn ess, calf pain, palpitations. Physical Exam: GEN: NAD Cardio: RRR, S1 S2 present, no murmurs Lungs: CTA bilateral, no wheezing Abdomen: BS+, Incision closed and well approximated with clean margins, no erythema or discharge i s noted, uterus below the umbilicus. EXT: No edema, Patricia's negative. NEURO/PSYCH: AAOx3, no grossly focal deficits, preserved affect and mood. Assessment: 22 y/o s/p repeat scheduled C section on 03/01/2018 @ 15:20, tolerating pain w/ med ication, tolerating oral intake, ambulating w/o difficulties and without symptoms of orthostatic hypo tension, with adequate urine output, patient is doing well on POD3. Plan: -Ibuprofen 600 mg 1 tab Q6h PO prn for mild pain. -Percocet 5/325 mg 1 tabs PO Q6h prn for mod/severe pain. -continue PNV 1 tab PO QD -Encourage breast feeding and ambulation. -D/C home today Deborah Reaves MD PGY1 Patient seen and examined by me this am. Agree with above resident note. Patient for discharge jesus e today with follow up on Thursday03/08/18. --Dr. Alexis Vital Signs Provider PP: Reviewed
--- NOTE | 2018-03-04 13:10 | OBDCSUM ---
Datetime: 03/04/2018 07:22 Discharged to, Provider: Home Follow up at, Provider: karen Disch Instr Activity: May Shower Disch Instr Diet: Regular Discharge Instructions, Provider: Routine instructions given Discharge Diagnosis, Provider: Term Delivered Discharge Time: 03/04/2018 12:00 Follow up in weeks, Provider: 1 week Disch Referrals: None Contraception discussed, Prov: Yes Disch Activity Restrictions: No lifting; No sexual activity; Nothing in vagina - [place], tampon s, douche Discharge Comment, Provider: 22 y/o s/p repeat scheduled C section, delivered a baby girl on 03/01/18 at 15:20 @ 39.4 weeks, Wt 3010 gms, 9/9. The patient is doing well, and stable for D/C on POD3, patient reports only mild pelvic pain that gets relief with oral medication, patient is tolerat ing oral food, voiding w/o difficulties, lochia is less than menses, she is getting OOB and ambulatin g w/o difficulties, denies palpitations, dizziness, CP, SOB, N/V/D, calf pain. Physical Exam: GEN: NAD Cardio: RRR, S1 S2 present, no murmurs Lungs: CTA bilateral, no wheezing Abdomen: BS+, pfannenstiel Incision closed and well approximated with clean margins, no erythema o r discharge is noted, uterus below the umbilicus. EXT: No edema, Patricia's negative. NEURO/PSYCH: AAOx3, no grossly focal deficits, preserved affect and mood. D/C Instructions: -Discharge today -Encourage -Ibuprofen 600 mg PO 1 tab PO Q6h for pain PRN. -Percocet 1 tab PO Q6h PRN pain/moderate to severe -Ambulate w/caution, no heavy lifting, if new symptoms of pain or bleeding or fever are present go to ED. - F/U with your PMD in 1 week for wound check and visit in 4 to 6 weeks. Deborah Reaves MD PGY1 Agree with above note. --Dr. Mauricio-Lisa Contraception after Delivery: IUD
[2018-03-05 03:38] VITALS: BP 102/53; PULSE 83; RESP 18; TEMP 98.5; O2SAT 97
== END 2018-03-04 12:00 | disposition home or self-care (01) | DRG 370 ==
LOC: H.EROB2 09:35 → H.L&D 10:57 → H.OB/GYN 03-02 08:30
PROVIDERS: ADMIT Obstetrics & Gynecology; ATTEND Obstetrics & Gynecology
PROC: 10D00Z1 Extraction of Products of Conception, Low, Open Approach (ICD-10-PCS; principal; 2018-03-01)
PROC: 4A1HXCZ Monitoring of Products of Conception, Cardiac Rate, External Approach (ICD-10-PCS; 2018-03-01)
DX: O34.211 Maternal care for low transverse scar from previous cesarean delivery (principal); O99.42 Diseases of the circulatory system complicating childbirth; O99.02 Anemia complicating childbirth; N85.8 Other specified noninflammatory disorders of uterus; Z3A.39 39 weeks gestation of pregnancy; Z37.0 Single live birth; I47.1 Supraventricular tachycardia; D57.3 Sickle-cell trait